=== PATIENT | female | born 1980 | race Caucasian/White ===

== ENCOUNTER 2016-11-05 21:46 | Emergency (ER) | payer MEDICAID ==
[~2016-11-05] VITALS: Wt 90.5 kg
[~2016-11-05 21:46] MED LIST: ALBU8.5H3 INH; PRENAT PO
[2016-11-05] MEDS ORDERED: morphine 4 MG/ML VIAL IV STA (23:09)
[2016-11-05] MEDS ORDERED: ONDANSETRON 4 MG INJ IV STA (23:09)
[2016-11-05] MEDS ORDERED: SOD CHLORIDE 0.9% 1,000 ML IV STA (23:09)
[2016-11-05 23:51] LABS: ADD SCAN DIFF NO
[2016-11-05 23:53] LABS: BASOPHILS % 0.3 % (0.0-2.0); EOSINOPHILS % 0.4 % (0.0-7.0); HEMATOCRIT 40.1 % (37.0-47.0); LYMPHOCYTES # 2.4 10^3/ul (0.8-2.9); LYMPHOCYTES % 31.2 % (15.0-51.0); MEAN CORPUSCULAR HGB CONC 34.9 g/dl (32.0-37.0); MEAN CORPUSCULAR VOLUME 91.8 fl (82.0-101.0); MEAN PLATELET VOLUME 11.9 fl (7.4-10.4); MONOCYTE # 0.5 10^3/ul (0.3-0.9); MONOCYTES % 6.6 % (0.0-11.0); NEUTROPHIL # 4.7 10^3/ul (1.6-7.5); NEUTROPHILS % 61.2 % (39.0-77.0); PLATELET COUNT 261 10^3/UL (140-415); RED BLOOD COUNT 4.37 10^6/ul (4.20-5.40); RED CELL DISTRIBUTION WIDTH 13.2 % (11.5-14.5); WHITE BLOOD COUNT 7.7 10^3/ul (4.8-10.8)
[2016-11-06 00:13] LABS: CALCIUM 9.7 mg/dl (8.4-10.2); CREATININE 0.73 mg/dl (0.44-1.00); POTASSIUM 3.1 mmol/L (3.5-5.1)
[2016-11-06 00:17] LABS: INR 1.13; PROTIME 14.5 Sec (12.2-14.2); PT RATIO 1.1
[2016-11-06 00:18] LABS: PARTIAL THROMBOPLASTIN TIME 30.4 Sec (25.0-35.0)
--- NOTE | 2016-11-06 00:26 | RADRPT ---
PROCEDURE: CT Brain without contrast. CLINICAL INDICATION: Headache. TECHNIQUE: A CT of the brain was performed utilizing axial sections from the skull base through th e vertex without contrast. Multiplanar re-formations were generated. Images were reviewed on a high- resolution PACS workstation. CTDIvol: 43.58 mGy. DLP: 630.20 mGy-cm. One or more of the following dose reduction techniques were used: - Automated exposure control. - Adjustment of the mA and/or kV according to patient size. - Use of iterative reconstruction technique. COMPARISON: None available FINDINGS: There is no cerebral volume loss. No hydrocephalus is seen. There is no mass effect. No acute intrac ranial hemorrhage is identified. There is no extra-axial collection. Champagne-white matter differentiati on is preserved. There is no significant mucosal disease in the paranasal sinuses. The visualized mastoid air cells are clear. The ossesous structures are unremarkable. The extracranial soft tissues are unremarkable. IMPRESSION: 1. No acute intracranial pathology. RPTAT: HTAR .Jay Escamilla MD, Date Time Electronically viewed and signed by .Jay Escamilla MD, on 11/06/2016 00:26 .R/
[2016-11-06] MEDS ORDERED: POTASSIUM CHLORIDE (SR) 20 MEQ TAB PO STA (00:42)
--- NOTE | 2016-11-06 00:45 | RADRPT ---
PROCEDURE: Chest. CLINICAL INDICATION: Chest pain. TECHNIQUE: Single frontal view of the chest was obtained. COMPARISON: None. FINDINGS: The cardiac silhouette is within normal limits. The aortic arch is unremarkable. There is no focal consolidation, vascular congestion or pleural effusion. There is no pneumothorax. IMPRESSION: No evidence for active cardiopulmonary disease. .Judd Liz MD, MD Date Time Electronically viewed and signed by .Judd Liz MD, on 11/06/2016 00:45 .T/
[2016-11-06] MEDS ORDERED: TRAM50TA2 PO (01:05)
[2016-11-06] MEDS ORDERED: ONDA-43 PO (01:05)
--- NOTE | 2016-11-06 01:21 | ERD ---
ER Documentation Chief Complaint Date/Time DATE: 11/06/16 TIME: 01:14 Chief Complaint DIZZY/NAUSEA/HEADACHE/LEFT LEG PAIN/CHILLS SINCE AM HPI This is a 36-year-old female presents to the ER with multiple complaints. Patient states that today she developed a throbbing pressure-like headache that is located all over her head. Patient states that headache is severe and constant she denies any eye pain eye trauma. Patient is also complaining of nausea and 3 episodes of nonbilious nonbloody vomiting. She denies any diarrhea. Patient denies any fevers or chills. Patient is complaining of left entire leg pain. She denies any trauma to the leg. She denies any numbness or tingling to her legs. Patient also complaining of dizziness which is described as weakness. She denies a spinning sensation. Patient denies any recent cough or cold symptoms. She denies any urinary frequency or dysuria. ROS 12 point review of systems was done, all negative except per HPI. Medications Home Meds Active Scripts Ondansetron Hcl* (Zofran*) 4 Mg Tab, 4 MG PO Q4H Y for NAUSEA AND OR VOMITING for 3 Days, TAB Prov:KETAN PENDLETON 11/06/16 Tramadol HCl (Tramadol HCl) 50 Mg Tablet, 50 MG PO Q4 Y for PAIN, #20 TAB Prov:KETAN PENDLETON 11/06/16 Reported Medications Multivit/Min/Fol Ac/Iron/Pren* ( S*) 1 Tab Tab, 1 TAB PO DAILY, TAB 05/31/14 Albuterol Sulfate* (Proair HFA*) 8.5 Gm Hfa.aer.ad, 2 PUFF INH Q4 Y for SHORTNESS OF BREATH 07/23/13 Allergies Allergies: Coded Allergies: No Known Drug Allergies (Unverified Allergy, Unknown, 06/16/14) PMhx/Soc Hx Respiratory Disorders: Yes (ASTHMA) Hx Miscellaneous Medical Probl: Yes (SURGERY TO BACK OF HEAD?) Hx Alcohol Use: No Hx Substance Use: No Hx Tobacco Use: No Smoking Status: Unknown if ever smoked Physical Exam Vitals Vital Signs Date Time Temp Pulse Resp B/P Pulse Ox O2 Delivery O2 Flow Rate FiO2 11/05/16 21:49 99.9 79 18 127/61 98 Physical Exam GENERAL: The patient is well developed and appropriate for usual state of health , in no apparent distress. HEENT: Atraumatic. Conjunctivae are pink. Pupils equal, round, and reactive to light. Extraocular muscles are grossly intact. Bilateral tympanic membranes are clear with no evidence of erythema, bulging or perforation. No sinus tenderness. NECK: C-spine is soft and supple. There is no cervical lymphadenopathy. CHEST: Clear to auscultation bilaterally. There are no rales, wheezes or rhonchi. HEART: Regular rate and rhythm. No murmurs, clicks, rubs or gallops. EXTREMITIES: Equal pulses bilaterally. There is no peripheral clubbing, cyanosis or edema. No focal swelling or erythema. Full range of motion. Grossly neurovascularly intact. NEURO: Alert and oriented. Cranial nerves II through XII are intact. Motor strength in all 4 extremities with 5/5 strength. Sensation grossly intact. Normal speech and gait. Negative Rhomberg. +2 DTRs. SKIN: There is no apparent rash or petechia. The skin is warm and dry. Result Diagram: 11/05/16 2330 11/05/16 2330 Results 24 hrs Laboratory Tests Test 11/05/16 23:30 White Blood Count 7.710^3/ul Red Blood Count 4.3710^6/ul Hemoglobin 14.0g/dl Hematocrit 40.1% Mean Corpuscular Volume 91.8fl Mean Corpuscular Hemoglobin 32.0pg Mean Corpuscular Hemoglobin Concent 34.9g/dl Red Cell Distribution Width 13.2% Platelet Count 99773^3/UL Mean Platelet Volume 11.9fl Neutrophils % 61.2% Lymphocytes % 31.2% Monocytes % 6.6% Eosinophils % 0.4% Basophils % 0.3% Nucleated Red Blood Cells % 0.0/100WBC Neutrophils # 4.710^3/ul Lymphocytes # 2.410^3/ul Monocytes # 0.510^3/ul Eosinophils # 0.010^3/ul Basophils # 0.010^3/ul Nucleated Red Blood Cells # 0.010^3/ul Prothrombin Time 14.5Sec Prothrombin Time Ratio 1.1 INR International Normalized Ratio 1.13 Activated Partial Thromboplast Time 30.4Sec Sodium Level 144mmol/L Potassium Level 3.1mmol/L Chloride Level 105mmol/L Carbon Dioxide Level 22mmol/L Anion Gap 20 Blood Urea Nitrogen 11mg/dl Creatinine 0.73mg/dl Glucose Level 106mg/dl Calcium Level 9.7mg/dl Current Medications Medications (Trade) Dose Ordered Sig/Karissa Route PRN Reason Start Time Stop Time Status Last Admin Dose Admin Sodium Chloride (NS) 1,000 ml @ 1,000 mls/hr Q1H STAT IV 11/05/16 23:09 11/06/16 00:08 DC 11/05/16 23:37 Ondansetron HCl (Zofran Inj) 4 mg ONCE STAT IV 11/05/16 23:09 11/05/16 23:11 DC 11/05/16 23:37 Morphine Sulfate (morphine) 6 mg ONCE STAT IV 11/05/16 23:09 11/05/16 23:11 DC 11/05/16 23:37 Potassium Chloride (Klor-Con 20) 20 meq ONCE STAT PO 11/06/16 00:42 11/06/16 00:47 DC Procedures/MDM Differential Diagnosis includes but is not limited to; tension headache, migraine headache, cluster headache, sinus headache, nonspecific febrile headache, trigeminal neurologia, subdural hematoma, subarachnoid bleeding, meningitis, encephalitis. Patient is neurologically intact with no focal neurological deficits. At this time suspicion for acute intracranial pathology is low. Patient does have multiple complaints, she may have a viral illness. She is afebrile and well-appearing. Her nausea was treated in the ER she did not not have any episodes of vomiting. In regards to patient's leg pain she does not have any trauma and her physical examination is benign, she does not have any tenderness along her leg. I do not feel that x-rays are necessary at this time. In regards to shortness of breath suspicion for pulmonary embolism is low she does not have any PERC criteria. EKG was taken [address] elevation no T-wave inversion and was read by . Chest x-ray was negative for pneumonia, pneumothorax or other intrathoracic abnormality. On patient's blood work she did have lightly low potassium, she was given 20 mEq of K-Dur in the ER without any complications. At this time patient is asymptomatic in terms of hypokalemia. She is stable for outpatient follow-up. She will be sent home with tramadol and with Zofran. Patient is to follow-up with her primary care doctor within 1-2 days return to ER sooner if symptoms worsen. My medical decision making was shared with the patient and her they both understand and agree with plan. Departure Diagnosis: Primary Impression: Multiple complaints Condition: Stable Patient Instructions: Headache, Unspecified Additional Instructions: Llame al doctor MAANA y tiffani kingsley DENNIS PARA DENTRO DE 1-2 MERCADO.Dgale a la secretaria que nosotros le instruimos hacer esta dennis.Avise o llame si berkowitz condicin se empeora antes de la dennis. Regresa aqui si peor o no mejor. KETAN PENDLETON Nov 06, 2016 01:20
[2016-11-06 01:42] VITALS: BP 107/58; PULSE 72; RESP 18; TEMP 98.2
== END 2016-11-06 01:45 | disposition home or self-care (01) ==
LOC: FTE 21:46
DX: R42 Dizziness and giddiness (principal); M79.605 Pain in left leg; R11.0 Nausea; J45.909 Unspecified asthma, uncomplicated
CPT/HCPCS: 36415; 70450; 71010; 80048; 85025; 85610; 85730; 93005; 96374; 96375; J2270; J2405; J7030; Z7502; Z7610

== ENCOUNTER 2017-02-03 17:03 | Emergency (ER) | payer MEDICAID ==
[~2017-02-03] VITALS: Ht 165.1 cm; Wt 86.0 kg
[~2017-02-03 17:03] MED LIST changes: +ONDA-43 PO; +TRAM50TA2 PO
[2017-02-03 17:05] VITALS: Ht 165.1 cm; Wt 86.0 kg
[2017-02-03] MEDS ORDERED: morphine 4 MG/ML VIAL IV STA (17:42)
[2017-02-03] MEDS ORDERED: ONDANSETRON 4 MG INJ IV STA (17:42)
[2017-02-03 18:07] LABS: BASOPHIL # 0.1 10^3/ul (0.0-0.1); BASOPHILS % 0.4 % (0.0-2.0); EOSINOPHILS % 0.3 % (0.0-7.0); HEMATOCRIT 43.9 % (37.0-47.0); HEMOGLOBIN 15.1 g/dl (12.0-16.0); LYMPHOCYTES # 2.9 10^3/ul (0.8-2.9); LYMPHOCYTES % 21.6 % (15.0-51.0); MEAN CORPUSCULAR HEMOGLOBIN 31.6 pg (29.0-33.0); MEAN CORPUSCULAR HGB CONC 34.4 g/dl (32.0-37.0); MEAN CORPUSCULAR VOLUME 91.8 fl (82.0-101.0); MEAN PLATELET VOLUME 11.8 fl (7.4-10.4); MONOCYTE # 0.7 10^3/ul (0.3-0.9); MONOCYTES % 4.9 % (0.0-11.0); NEUTROPHIL # 9.6 10^3/ul (1.6-7.5); NEUTROPHILS % 72.5 % (39.0-77.0); PLATELET COUNT 346 10^3/UL (140-415); RED BLOOD COUNT 4.78 10^6/ul (4.20-5.40); RED CELL DISTRIBUTION WIDTH 13.5 % (11.5-14.5); WHITE BLOOD COUNT 13.2 10^3/ul (4.8-10.8)
[2017-02-03 18:20] LABS: ADD UMIC YES; UR ASCORBIC ACID NEGATIVE (NEGATIVE); UR BACTERIA FEW /HPF (NONE SEEN); UR BILIRUBIN (Dip) NEGATIVE (NEGATIVE); UR BLOOD (Dip) 1+ mg/dL (NEGATIVE); UR CLARITY SLIGHTLY CLOUDY (CLEAR); UR COLOR AMBER (YELLOW); UR GLUCOSE (Dip) NEGATIVE (NEGATIVE); UR KETONES (Dip) NEGATIVE (NEGATIVE); UR LEUKOCYTE ESTERASE (Dip) NEGATIVE Leu/ul (NEGATIVE); UR MUCUS MANY /HPF (NONE SEEN); UR NITRITE (Dip) NEGATIVE (NEGATIVE); UR RBC 5 /HPF (0-5); UR SPECIFIC GRAVITY (Dip) 1.033 (1.003-1.030); UR SQUAMOUS EPITHELIAL CELL FEW /HPF (FEW); UR TOTAL PROTEIN (Dip) 1+ mg/dl (NEGATIVE); UR UROBILINOGEN (Dip) NEGATIVE (NEGATIVE)
[2017-02-03 18:26] LABS: ALBUMIN 4.7 g/dl (3.3-4.9); ALBUMIN/GLOBULIN RATIO 1.14; BILIRUBIN,INDIRECT 0.3 mg/dl (0-1.1); BILIRUBIN,TOTAL 0.3 mg/dl (0.2-1.3); CALCIUM 9.8 mg/dl (8.4-10.2); CREATININE 0.94 mg/dl (0.44-1.00); POTASSIUM 4.2 mmol/L (3.5-5.1); TOTAL PROTEIN 8.8 g/dl (6.1-8.1)
--- NOTE | 2017-02-03 18:34 | ERD ---
ER Documentation Chief Complaint Date/Time DATE: 02/03/17 TIME: 18:28 Chief Complaint Complains of abdominal pain hx of C- section 2 yrs ago HPI This is a 37-year-old female who presents emergency department today after being referred by her primary care clinic. Patient states that she had abdominal pain since yesterday and noticed a bump around her bellybutton and noticed something whitish inside her belly button. States she has had some nausea. States she had a 2-1/2 years ago at [facility]. States she has had diarrhea for the past year and 1/2-2 years. Denies any fevers or chills, dysuria. ROS All systems reviewed and are negative except as per history of present illness. Medications Home Meds Active Scripts Ondansetron Hcl* (Zofran*) 4 Mg Tablet, 4 MG PO Q6H for NAUSEA AND/OR VOMITING, #30 TAB Prov:CLAUDIA ZAVALA PA-C 02/03/17 Acetaminophen* (Tylophen*) 500 Mg Capsule, 1 CAP PO Q6H Y for PAIN AND OR ELEVATED TEMP, #30 CAP Prov:CLAUDIA ZAVALA PA-C 02/03/17 Cephalexin* (Keflex*) 500 Mg Capsule, 500 MG PO QID for 7 Days, CAP Prov:CLAUDIA ZAVALA PA-C 02/03/17 Dicyclomine Hcl* (Bentyl*) 10 Mg Capsule, 10 MG PO QID, #30 CAP Prov:CLAUDIA ZAVALA PA-C 02/03/17 Ondansetron Hcl* (Zofran*) 4 Mg Tab, 4 MG PO Q4H Y for NAUSEA AND OR VOMITING for 3 Days, TAB Prov:KETAN PENDLETON 11/06/16 Tramadol HCl (Tramadol HCl) 50 Mg Tablet, 50 MG PO Q4 Y for PAIN, #20 TAB Prov:KETAN PENDLETON 11/06/16 Reported Medications Multivit/Min/Fol Ac/Iron/Pren* ( S*) 1 Tab Tab, 1 TAB PO DAILY, TAB 05/31/14 Albuterol Sulfate* (Proair HFA*) 8.5 Gm Hfa.aer.ad, 2 PUFF INH Q4 Y for SHORTNESS OF BREATH 07/23/13 Allergies Allergies: Coded Allergies: No Known Drug Allergies (Unverified Allergy, Unknown, 06/16/14) PMhx/Soc History of Surgery: Yes (head, csect x1) Hx Respiratory Disorders: Yes (ASTHMA) Hx Miscellaneous Medical Probl: Yes (SURGERY TO BACK OF HEAD?) Hx Alcohol Use: No Hx Substance Use: No Hx Tobacco Use: No Physical Exam Vitals Vital Signs Date Time Temp Pulse Resp B/P Pulse Ox O2 Delivery O2 Flow Rate FiO2 02/03/17 17:05 99.1 100 20 126/66 98 Physical Exam Const: NAD Head: Atraumatic Eyes: Normal Conjunctiva ENT: Normal External Ears, Nose and Mouth. Neck: Full range of motion..~ No meningismus. Resp: Clear to auscultation bilaterally Cardio: Regular rate and rhythm, no murmurs Abd: Soft, abdominal tenderness non distended. Normal bowel sounds no specific tenderness at McBurney's. Evidence of tissue paper in patient's umbilicus Skin: No petechiae or rashes Back: No midline or flank tenderness Ext: No cyanosis, or edema Neur: Awake and alert Psych: Normal Mood and Affect Result Diagram: 02/03/17175602/03/171756 Results 24 hrs Laboratory Tests Test 02/03/17 17:57 White Blood Count 13.210^3/ul Red Blood Count 4.7810^6/ul Hemoglobin 15.1g/dl Hematocrit 43.9% Mean Corpuscular Volume 91.8fl Mean Corpuscular Hemoglobin 31.6pg Mean Corpuscular Hemoglobin Concent 34.4g/dl Red Cell Distribution Width 13.5% Platelet Count 40557^3/UL Mean Platelet Volume 11.8fl Neutrophils % 72.5% Lymphocytes % 21.6% Monocytes % 4.9% Eosinophils % 0.3% Basophils % 0.4% Nucleated Red Blood Cells % 0.0/100WBC Neutrophils # 9.610^3/ul Lymphocytes # 2.910^3/ul Monocytes # 0.710^3/ul Eosinophils # 0.010^3/ul Basophils # 0.110^3/ul Nucleated Red Blood Cells # 0.010^3/ul Urine Color HAM Urine Clarity SLIGHTLY CLOUDY Urine pH 5.0 Urine Specific Debary 1.033 Urine Ketones NEGATIVEmg/dL Urine Nitrite NEGATIVEmg/dL Urine Bilirubin NEGATIVEmg/dL Urine Urobilinogen NEGATIVEmg/dL Urine Leukocyte Esterase NEGATIVELeu/ul Urine Microscopic RBC 5/HPF Urine Microscopic WBC 3/HPF Urine Squamous Epithelial Cells FEW/HPF Urine Bacteria FEW/HPF Urine Mucus MANY/HPF Urine Hemoglobin 1+mg/dL Urine Glucose NEGATIVEmg/dL Urine Total Protein 1+mg/dl Sodium Level 144mmol/L Potassium Level 4.2mmol/L Chloride Level 111mmol/L Carbon Dioxide Level 19mmol/L Anion Gap 18 Blood Urea Nitrogen 11mg/dl Creatinine 0.94mg/dl Glucose Level 87mg/dl Calcium Level 9.8mg/dl Total Bilirubin 0.3mg/dl Direct Bilirubin 0.00mg/dl Indirect Bilirubin 0.3mg/dl Aspartate Amino Transf (AST/SGOT) 36IU/L Alanine Aminotransferase (ALT/SGPT) 41IU/L Alkaline Phosphatase 117IU/L Total Protein 8.8g/dl Albumin 4.7g/dl Globulin 4.10g/dl Albumin/Globulin Ratio 1.14 Lipase 86U/L Current Medications Medications (Trade) Dose Ordered Sig/Karissa Route PRN Reason Start Time Stop Time Status Last Admin Dose Admin Morphine Sulfate (morphine) 4 mg ONCE STAT IV 02/03/17 17:42 02/03/17 17:43 DC 02/03/17 18:02 Ondansetron HCl (Zofran Inj) 4 mg ONCE STAT IV 02/03/17 17:42 02/03/17 17:43 DC 02/03/17 18:02 DIAGNOSTIC IMAGING REPORT Patient: CHRIS GIL : 1980 Age: 37 Sex: F [id number] DOS: 02/03/17 1742 Ordering MD: CLAUDIA ZAVALA PA-C Location: [facility] Room/Bed: PROCEDURE: CT Abdomen and Pelvis without contrast. CLINICAL INDICATION: Abdominal pain TECHNIQUE: CT scan of the abdomen and pelvis without contrast was performed without intravenous contrast. Coronal and sagittal reformatted images were obtained from the axial source images. Images were reviewed on a high- resolution PACS workstation. CTDI 21 mGy, DLP 1060 mGy-cm One or more of the following dose reduction techniques were used: Automated exposure control Adjustment of the mA and/or kV according to patient size. Use of iterative reconstruction technique. COMPARISON: None. FINDINGS: The lung bases are clear. The heart size is normal. The aorta and its branches are normal in size and caliber. The kidneys are symmetric in size and density. There is no perinephric fat stranding. There is no nephroureterolithiasis or hydronephrosis. The ureters are normal in course and caliber. Evaluation of solid organs is limited due to the lack of intravenous contrast. However, the liver, gallbladder, spleen, pancreas, and adrenal glands are unremarkable. There is a small hiatal hernia. The stomach is decompressed. The small bowel loops are normal in caliber without evidence of small bowel obstruction. There are a few diverticula within the lower descending and sigmoid colon without evidence for diverticulitis. The appendix is visualized, and is normal. There is no free intraperitoneal fluid or pneumoperitoneum. There is no mesenteric, retroperitoneal, or pelvic lymphadenopathy. The bladder is decompressed. The uterus and adnexa are unremarkable. There is no pelvic free fluid. There are no acute fractures. There is mild degenerative disc disease at L5-S1. The soft tissues are unremarkable. RPTAT: ZZ IMPRESSION: 1. No acute intra-abdominal abnormality. 2. Small hiatal hernia. 3. Mild diverticulosis without evidence for diverticulitis. .Yudy Junior MD, MD Date Time Electronically viewed and signed by .Yudy Junior MD, on 02/03/2017 18: 52 .T/ CC: CLAUDIA ZAVALA PA-C Procedures/[facility] This is a 7-year-old female who presents emergency department today complaining of some lower abdominal pain, nausea that started yesterday. Patient has had a long history of diarrhea for the past year and 1/2-2 years. Patient did bring me a report stating that in 2014 patient had been treated for possible diverticulitis however she did not have a barium enema exam at that time given the concern for that. A CT scan at that time showed that she had a small hiatal hernia otherwise exam was within normal limits. Patient has recently had a pelvic ultrasound for pelvic and perineal pain in March 2016 for which she brought me records that showed a normal pelvic ultrasound. Given patient's concern for whitish product coming out of her bellybutton and her abdominal pain request from primary care doctor for further evaluation I did obtain a workup as well as imaging. Of note I pulled out the whitish material from the patient's bellybutton and it appears to be tissue paper or cotton. Laboratory workup shows a mildly elevated white blood cell count 13.2. She is not anemic. Platelets are within normal limits. Electrolytes are within normal limits. Glucose is within normal limits. Liver enzymes are within normal limits. Lipase is within normal limits. UA is negative for infection urine test is negative CT abdomen pelvis noncontrast shows no acute intracranial abnormality. There is a small hiatal hernia. Mild diverticulosis without evidence for diverticulitis. Symptoms at this time is consistent with abdominal pain, vomiting, diarrhea and foreign body in the soft tissue. Patient was given morphine and Zofran here in the emergency department pain improved. I did remove the remainder of tissue paper or foreign body from patient's umbilicus along with dirt and debris. There was some mild erythema and patient given a prescription for Keflex in addition to Zofran, Tylenol, Bentyl. Patient has a history of chronic diarrhea. Is afebrile and otherwise well-appearing. Low suspicion for sepsis, deep space infection. At this time the patient is stable for discharge and outpatient management. Patient should follow up with their PCP in the next 1-2 days. They may return to the emergency department sooner for any persistent or worsening of symptoms. Patient understood and agreed with the plan. Discussed the patient with Dr. Tyler and he is in agreement with the plan. Departure Diagnosis: Primary Impression: Abdominal pain Abdominal location: lower abdomen, unspecified Qualified Code: R10.30 - Lower abdominal pain Additional Impression: Foreign body in soft tissue Condition: CLAUDIA Mera PA-C Feb 03, 2017 18:34
--- NOTE | 2017-02-03 18:53 | RADRPT ---
PROCEDURE: CT Abdomen and Pelvis without contrast. CLINICAL INDICATION: Abdominal pain TECHNIQUE: CT scan of the abdomen and pelvis without contrast was performed without intravenous co ntrast. Coronal and sagittal reformatted images were obtained from the axial source images. Images were reviewed on a high-resolution PACS workstation. CTDI 21 mGy, DLP 1060 mGy-cm One or more of the following dose reduction techniques were used: Automated exposure control Adjustment of the mA and/or kV according to patient size. Use of iterative reconstruction technique. COMPARISON: None. FINDINGS: The lung bases are clear. The heart size is normal. The aorta and its branches are normal in size and caliber. The kidneys are symmetric in size and density. There is no perinephric fat stranding. There is no ne phroureterolithiasis or hydronephrosis. The ureters are normal in course and caliber. Evaluation of solid organs is limited due to the lack of intravenous contrast. However, the liver, g allbladder, spleen, pancreas, and adrenal glands are unremarkable. There is a small hiatal hernia. The stomach is decompressed. The small bowel loops are normal in paradise iber without evidence of small bowel obstruction. There are a few diverticula within the lower desce nding and sigmoid colon without evidence for diverticulitis. The appendix is visualized, and is norm al. There is no free intraperitoneal fluid or pneumoperitoneum. There is no mesenteric, retroperitoneal, or pelvic lymphadenopathy. The bladder is decompressed. The uterus and adnexa are unremarkable. There is no pelvic free fluid . There are no acute fractures. There is mild degenerative disc disease at L5-S1. The soft tissues are unremarkable. RPTAT: ZZ IMPRESSION: 1. No acute intra-abdominal abnormality. 2. Small hiatal hernia. 3. Mild diverticulosis without evidence for diverticulitis. .Yudy Junior MD, Date Time Electronically viewed and signed by .Yudy Junior MD, MD on 02/03/2017 18:52 .T/
[2017-02-03] MEDS ORDERED: DICY10CA60 PO (19:27)
[2017-02-03] MEDS ORDERED: CEPH-443 PO (19:27)
[2017-02-03] MEDS ORDERED: ONDA4TAB8 PO (19:29)
[2017-02-03] MEDS ORDERED: ACET500C5 PO (19:29)
[2017-02-03 19:54] VITALS: BP 119/65; PULSE 77; RESP 18; TEMP 98.5
== END 2017-02-03 19:56 | disposition home or self-care (01) ==
LOC: FTE 17:03
DX: R10.30 Lower abdominal pain, unspecified (principal); J45.909 Unspecified asthma, uncomplicated; T18.2XXA Foreign body in stomach, initial encounter; X58.XXXA Exposure to other specified factors, initial encounter; Y92.9 Unspecified place or not applicable
CPT/HCPCS: 36415; 74176; 80053; 81001; 83690; 85025; 96374; 96375; J2270; J2405; Z7502

== ENCOUNTER 2017-05-11 17:35 | Emergency (ER) | END 2017-05-11 23:55 | disposition home or self-care (01) ==

== ENCOUNTER 2017-05-23 20:02 | Emergency (ER) | END 2017-05-23 23:30 | disposition left against medical advice (07) ==

== ENCOUNTER 2019-01-05 21:00 | Emergency (ER) | payer MEDICAID ==
[~2019-01-05] VITALS: Ht 160 cm; Wt 93.9 kg
[~2019-01-05 21:00] MED LIST changes: +ACET500C5 PO; -ALBU8.5H3 INH; +ALBU8.5H8 INH; +BACL10TA PO; +CEPH-443 PO; +DICY10CA40 PO; +DOCU-144 PO; +FAMO-96 PO; +HYDR-4011 PO; -ONDA-43 PO; +ONDA4TAB13 PO; +ONDA4TAB14 PO; +ONDA4TAB8 PO; +POLY17PO6 PO
[2019-01-05 21:02] VITALS: Ht 160 cm; Wt 93.9 kg
[2019-01-05] MEDS ORDERED: KETOROLAC 30 MG INJ IM STA (21:31)
[2019-01-05] MEDS ORDERED: ONDANSETRON 4 MG INJ IV STA (21:31)
[2019-01-05] MEDS ORDERED: FAMOTIDINE 20 MG TAB PO STA (21:31)
[2019-01-05] MEDS ORDERED: KETOROLAC 30 MG INJ IV STA (22:09)
[2019-01-05] MEDS ORDERED: FAMOTIDINE 20 MG INJ IV ONE (22:30)
[2019-01-05] MEDS ORDERED: POTASSIUM CHLORIDE (SR) 20 MEQ TAB PO ONE (23:35)
[2019-01-06] MEDS ORDERED: morphine 2 MG INJ IV STA ×2 (00:10→00:19)
[2019-01-06] MEDS ORDERED: SOD CHLORIDE 0.9% 1,000 ML IV ONE (00:30)
[2019-01-06] MEDS ORDERED: HYDROCODONE/APAP (10/325) TAB PO ONE (00:30)
[2019-01-06] MEDS ORDERED: SOD CHLORIDE 0.9% 100 ML ONE (00:41)
[2019-01-06] MEDS ORDERED: IOHEXOL 300MG/ML 150 ML BTL ONE (00:41)
[2019-01-06 01:41] VITALS: BP 95/52; PULSE 76; RESP 18
== END 2019-01-06 01:42 | disposition home or self-care (01) ==
LOC: FTE 21:00
DX: R10.12 Left upper quadrant pain (principal); J45.909 Unspecified asthma, uncomplicated
CPT/HCPCS: 36415; 74177; 76705; 80053; 81001; 81025; 83690; 85025; 96374; 96375; J1885; J2270; J2405; J7030; Q9967; Z7502; Z7610